=== PATIENT | female | born 1980 | race Caucasian/White ===

== ENCOUNTER 2016-11-08 16:52 | Emergency (ER) | payer OTHER | END 2016-11-08 19:25 | disposition home or self-care (01) | LOC: ER1 16:52 | DX: R60.0 Localized edema (principal); G70.00 Myasthenia gravis without (acute) exacerbation; Z88.1 Allergy status to other antibiotic agents; Z88.8 Allergy status to other drugs, medicaments and biological substances | CPT/HCPCS: 93971; 99283 ==

== ENCOUNTER → 2020-05-20 | Outpatient (CLI) | payer BC, OTHER ==
[~2020-05-20] VITALS: Ht 180.3 cm; Wt 92.5 kg
[~2020-05-20] MED LIST: AMBIEN10 MG PO; CELLCEPT500 MG PO; FIORICET TAB1 EA PO; KLONOPIN TAB 00.5 MG PO; MELATONIN5 M2 PO; MESTINON TIMES180 MG PO; MESTINON60 MG PO; PHENERGAN 25 MG25 M1 PO; PROPRANOLOL HCL20 MG PO; PROZAC40 MG PO
== END ==
LOC: OPSV 13:00
DX: G70.00 Myasthenia gravis without (acute) exacerbation (principal)
CPT/HCPCS: 96365; 96375; J1300; J1642; J2930; J7030

== ENCOUNTER → 2020-06-04 | Outpatient (CLI) | payer MEDICARE, OTHER ==
[~2020-06-04] VITALS: Ht 180.3 cm; Wt 92.5 kg
== END ==
LOC: OPSV 06-03 13:00
DX: G70.01 Myasthenia gravis with (acute) exacerbation (principal)
CPT/HCPCS: 96365; 96375; J1300; J1642; J2930; J7030

== ENCOUNTER → 2020-06-18 | Outpatient (CLI) | payer MEDICARE, OTHER ==
[~2020-06-18] VITALS: Ht 180.3 cm; Wt 92.5 kg
== END ==
LOC: OPSV 13:00
DX: G70.01 Myasthenia gravis with (acute) exacerbation (principal); G70.00 Myasthenia gravis without (acute) exacerbation
CPT/HCPCS: 96365; 96375; J1300; J1642; J2930; J7030

== ENCOUNTER → 2020-07-23 | Outpatient (CLI) | payer MEDICARE, OTHER ==
[~2020-07-23] VITALS: Ht 180.3 cm; Wt 92.5 kg
== END ==
LOC: OPSV 07-21 10:00
DX: G70.00 Myasthenia gravis without (acute) exacerbation (principal)
CPT/HCPCS: 96365; 96375; J1300; J1642; J2930; J7030

== ENCOUNTER → 2020-08-05 | Outpatient (CLI) | payer MEDICARE, OTHER ==
[~2020-08-05] VITALS: Ht 180.3 cm; Wt 92.5 kg
== END ==
LOC: OPSV 12:00
DX: G70.00 Myasthenia gravis without (acute) exacerbation (principal)
CPT/HCPCS: 96365; 96375; J1300; J1642; J2930; J7030

== ENCOUNTER → 2020-08-19 | Outpatient (CLI) | payer MEDICARE, OTHER ==
[~2020-08-19] VITALS: Ht 180.3 cm; Wt 92.5 kg
== END ==
LOC: OPSV 12:00
DX: Z45.2 Encounter for adjustment and management of vascular access device (principal); Z88.1 Allergy status to other antibiotic agents
CPT/HCPCS: 96365; 96375; J1300; J1642; J2930; J7030

== ENCOUNTER → 2020-09-03 | Outpatient (CLI) | payer MEDICARE, OTHER | LOC: OPSV 09-02 12:00 | DX: G70.00 Myasthenia gravis without (acute) exacerbation (principal) | CPT/HCPCS: 96365; 96375; J1300; J1642; J2930; J7030 ==

== ENCOUNTER → 2020-09-23 | Outpatient (CLI) | payer MEDICARE, OTHER ==
[~2020-09-23] VITALS: Ht 180.3 cm; Wt 92.5 kg
== END ==
LOC: OPSV 09-17 12:00
DX: G70.00 Myasthenia gravis without (acute) exacerbation (principal)
CPT/HCPCS: 96365; 96375; J1300; J1642; J7030

== ENCOUNTER → 2020-10-15 | Outpatient (CLI) | payer MEDICARE, OTHER ==
[~2020-10-15] VITALS: Ht 180.3 cm; Wt 92.5 kg
== END ==
LOC: OPSV 11:00
DX: G70.00 Myasthenia gravis without (acute) exacerbation (principal)
CPT/HCPCS: 96365; 96375; J1300; J1642; J7030

== ENCOUNTER → 2020-10-29 | Outpatient (CLI) | payer MEDICARE, OTHER | LOC: OPSV 10:50 | DX: G70.00 Myasthenia gravis without (acute) exacerbation (principal); Z45.2 Encounter for adjustment and management of vascular access device | CPT/HCPCS: 96365; 96375; J1300; J1642; J7030 ==

== ENCOUNTER → 2020-11-12 | Outpatient (CLI) | payer MEDICARE, OTHER ==
[~2020-11-12] VITALS: Ht 180.3 cm; Wt 92.5 kg
== END ==
LOC: OPSV 09:53
DX: G70.00 Myasthenia gravis without (acute) exacerbation (principal)
CPT/HCPCS: 96365; 96375; J1300; J1642; J7030

== ENCOUNTER → 2020-11-26 | Outpatient (CLI) | payer MEDICARE, OTHER ==
[~2020-11-26] VITALS: Ht 180.3 cm; Wt 92.5 kg
== END ==
LOC: OPSV 11:00
DX: G70.00 Myasthenia gravis without (acute) exacerbation (principal)
CPT/HCPCS: 96365; 96375; J1300; J1642; J7030

== ENCOUNTER → 2020-12-10 | Outpatient (CLI) | payer MEDICARE, OTHER ==
[~2020-12-10] VITALS: Ht 180.3 cm; Wt 92.5 kg
== END ==
LOC: OPSV 11:00
DX: G70.00 Myasthenia gravis without (acute) exacerbation (principal); Z45.2 Encounter for adjustment and management of vascular access device
CPT/HCPCS: 96365; 96375; J1300; J1642; J7030

== ENCOUNTER → 2020-12-24 | Outpatient (CLI) | payer MEDICARE, OTHER ==
[~2020-12-24] VITALS: Ht 180.3 cm; Wt 92.5 kg
== END ==
LOC: OPSV 11:03
DX: G70.00 Myasthenia gravis without (acute) exacerbation (principal)
CPT/HCPCS: 96365; 96375; J1300; J1642; J7030

== ENCOUNTER → 2021-01-07 | Outpatient (CLI) | payer MEDICARE, OTHER ==
[~2021-01-07] VITALS: Ht 180.3 cm; Wt 92.5 kg
== END ==
LOC: OPSV 11:00
DX: G70.00 Myasthenia gravis without (acute) exacerbation (principal)
CPT/HCPCS: 96365; J1300; J1642; J7030

== ENCOUNTER → 2021-01-28 | Outpatient (CLI) | payer MEDICARE, OTHER ==
[~2021-01-28] VITALS: Ht 180.3 cm; Wt 92.5 kg
== END ==
LOC: OPSV 10:00
DX: G70.00 Myasthenia gravis without (acute) exacerbation (principal)
CPT/HCPCS: 96365; 96375; J1300; J1642; J7030

== ENCOUNTER → 2021-02-23 | Outpatient (CLI) | payer MEDICARE, OTHER ==
[~2021-02-23] VITALS: Ht 180.3 cm; Wt 92.5 kg
== END ==
LOC: OPSV 14:00
DX: G70.00 Myasthenia gravis without (acute) exacerbation (principal)
CPT/HCPCS: 96365; J1300; J1642; J7030

== ENCOUNTER → 2021-03-18 | Outpatient (CLI) | payer MEDICARE, OTHER ==
[~2021-03-18] VITALS: Ht 180.3 cm; Wt 92.5 kg
== END ==
LOC: OPSV 13:49
DX: G70.00 Myasthenia gravis without (acute) exacerbation (principal)
CPT/HCPCS: 96365; 96375; J1300; J1642; J2930; J7030

== ENCOUNTER → 2021-04-01 | Outpatient (CLI) | payer MEDICARE, OTHER | LOC: OPSV 12:00 | DX: G70.00 Myasthenia gravis without (acute) exacerbation (principal) | CPT/HCPCS: 96365; 96375; J1300; J1642; J7030 ==

== ENCOUNTER → 2021-04-15 | Outpatient (CLI) | payer MEDICARE, OTHER ==
[~2021-04-15] VITALS: Ht 180.3 cm; Wt 92.5 kg
== END ==
LOC: OPSV 13:21
DX: G70.00 Myasthenia gravis without (acute) exacerbation (principal)
CPT/HCPCS: 96365; J1300; J7030

== ENCOUNTER → 2021-04-29 | Outpatient (CLI) | payer MEDICARE, OTHER ==
[~2021-04-29] VITALS: Ht 180.3 cm; Wt 92.5 kg
== END ==
LOC: OPSV 13:50
DX: G47.00 Insomnia, unspecified (principal)
CPT/HCPCS: 96365; 96375; J1300; J1642; J7030

== ENCOUNTER → 2021-05-12 | Outpatient (CLI) | payer MEDICARE, OTHER | LOC: OPSV 13:36 | DX: Z45.2 Encounter for adjustment and management of vascular access device (principal); G70.00 Myasthenia gravis without (acute) exacerbation | CPT/HCPCS: 96365; 96375; J1300; J1642; J7030 ==

== ENCOUNTER → 2021-05-28 | Outpatient (CLI) | payer MEDICARE, OTHER ==
[~2021-05-28] VITALS: Ht 180.3 cm; Wt 93.0 kg
== END ==
LOC: OPSV 05-26 14:00
DX: G70.00 Myasthenia gravis without (acute) exacerbation (principal); Z45.2 Encounter for adjustment and management of vascular access device
CPT/HCPCS: 96365; 96375; J1300; J1642; J7030

== ENCOUNTER → 2021-06-15 | Outpatient (CLI) | payer MEDICARE, OTHER ==
[~2021-06-15] VITALS: Ht 180.3 cm; Wt 92.5 kg
== END ==
LOC: OPSV 06-11 14:00
DX: G70.00 Myasthenia gravis without (acute) exacerbation (principal)
CPT/HCPCS: 96365; 96375; J1300; J1642; J7030

== ENCOUNTER → 2021-06-29 | Outpatient (CLI) | payer MEDICARE, OTHER ==
[~2021-06-29] VITALS: Ht 180.3 cm; Wt 92.5 kg
== END ==
LOC: OPSV 13:39
DX: G70.00 Myasthenia gravis without (acute) exacerbation (principal)
CPT/HCPCS: 96365; 96375; J1300; J1642; J2930; J7030

== ENCOUNTER → 2021-07-23 | Outpatient (CLI) | payer MEDICARE, OTHER | LOC: OPSV 07-13 14:00 | DX: G70.00 Myasthenia gravis without (acute) exacerbation (principal) | CPT/HCPCS: 96365; 96375; J1300; J1642; J2930; J7030 ==

== ENCOUNTER → 2021-08-09 | Outpatient (CLI) | payer MEDICARE, OTHER | LOC: KOH-I 09:05 | DX: D15.0 Benign neoplasm of thymus (principal) | CPT/HCPCS: 71250 ==

== ENCOUNTER → 2021-08-12 | Outpatient (CLI) | payer MEDICARE, OTHER ==
[~2021-08-12] VITALS: Ht 180.3 cm; Wt 92.5 kg
== END ==
LOC: OPSV 14:00
DX: G70.01 Myasthenia gravis with (acute) exacerbation (principal)
CPT/HCPCS: 96365; 96375; J1300; J1642; J2930; J7030

== ENCOUNTER → 2021-09-06 | Outpatient (CLI) | payer MEDICARE, OTHER | LOC: OPSV 08-26 14:00 | DX: G70.00 Myasthenia gravis without (acute) exacerbation (principal) | CPT/HCPCS: 96365; J1300; J1642; J2930; J7030 ==

== ENCOUNTER → 2021-09-24 | Outpatient (CLI) | payer MEDICARE, OTHER ==
[~2021-09-24] VITALS: Ht 180.3 cm; Wt 92.5 kg
== END ==
LOC: OPSV 09-20 14:00
DX: G70.00 Myasthenia gravis without (acute) exacerbation (principal)
CPT/HCPCS: 96365; 96375; J1300; J1642; J2930; J7030

== ENCOUNTER → 2021-10-18 | Outpatient (CLI) | payer MEDICARE, OTHER ==
[~2021-10-18] VITALS: Ht 180.3 cm; Wt 92.5 kg
== END ==
LOC: OPSV 10-13 14:00
DX: G70.00 Myasthenia gravis without (acute) exacerbation (principal)
CPT/HCPCS: 96365; 96375; J1300; J2930; J7030

== ENCOUNTER → 2021-11-01 | Outpatient (CLI) | payer MEDICARE, OTHER ==
[~2021-11-01] VITALS: Ht 180.3 cm; Wt 112.5 kg
== END ==
LOC: OPSV 12:00
DX: G70.01 Myasthenia gravis with (acute) exacerbation (principal)
CPT/HCPCS: 96365; C9399

== ENCOUNTER → 2021-11-08 | Outpatient (CLI) | payer MEDICARE, OTHER ==
[~2021-11-08] VITALS: Ht 180.3 cm; Wt 112.0 kg
== END ==
LOC: OPSV 12:00
DX: G70.9 Myoneural disorder, unspecified (principal)
CPT/HCPCS: 96365; C9399; J1642

== ENCOUNTER → 2021-11-17 | Outpatient (CLI) | payer MEDICARE, OTHER ==
[~2021-11-17] VITALS: Ht 180.3 cm; Wt 112.0 kg
== END ==
LOC: OPSV 12:00
DX: G70.9 Myoneural disorder, unspecified (principal)
CPT/HCPCS: 96365; C9399; J1642

== ENCOUNTER → 2021-11-29 | Outpatient (CLI) | payer MEDICARE, OTHER | LOC: OPSV 11-24 12:00 | DX: G70.01 Myasthenia gravis with (acute) exacerbation (principal) | CPT/HCPCS: 96365; C9399; J1642 ==

== ENCOUNTER → 2022-01-03 | Outpatient (CLI) | payer MEDICARE, OTHER ==
[~2022-01-03] VITALS: Ht 180.3 cm; Wt 112.0 kg
== END | disposition left against medical advice (07) ==
LOC: OPSV 12-29 11:00
DX: G70.01 Myasthenia gravis with (acute) exacerbation (principal)
CPT/HCPCS: 96365; C9399; J1642

== ENCOUNTER → 2022-01-12 | Outpatient (CLI) | payer MEDICARE, OTHER | LOC: OPSV 01-11 12:00 | DX: Z53.9 Procedure and treatment not carried out, unspecified reason (principal) | CPT/HCPCS: 96365; J1642; J9332 ==

== ENCOUNTER → 2022-01-26 | Outpatient (CLI) | payer MEDICARE, OTHER ==
[~2022-01-26] VITALS: Ht 180.3 cm; Wt 112.0 kg
== END ==
LOC: OPSV 11:42
DX: G70.01 Myasthenia gravis with (acute) exacerbation (principal)
CPT/HCPCS: 96365; 96375; J1200; J1642; J9332

== ENCOUNTER → 2022-02-02 | Outpatient (CLI) | payer MEDICARE, OTHER ==
[~2022-02-02] VITALS: Ht 180.3 cm; Wt 112.0 kg
== END ==
LOC: OPSV 11:27
DX: G70.01 Myasthenia gravis with (acute) exacerbation (principal)
CPT/HCPCS: 96365; 96375; J1200; J1642; J9332

== ENCOUNTER → 2022-02-09 | Outpatient (CLI) | payer MEDICARE, OTHER ==
[~2022-02-09] VITALS: Ht 180.3 cm; Wt 112.0 kg
== END ==
LOC: OPSV 12:00
DX: G70.01 Myasthenia gravis with (acute) exacerbation (principal)
CPT/HCPCS: 96365; J1200; J1642; J9332